=== PATIENT | female | born 1975 | race Caucasian/White ===

== ENCOUNTER 2022-09-09 10:05 | Outpatient (CLI) | payer OTHER | END 2022-09-09 10:16 | disposition home or self-care (01) | LOC: MAMO-SONO 10:05 | PROVIDERS: ATTEND Specialist | DX: E06.9 Thyroiditis, unspecified (principal); N60.11 Diffuse cystic mastopathy of right breast; N60.12 Diffuse cystic mastopathy of left breast ==